=== PATIENT | female | born 1955 | race Two or more races ===

== ENCOUNTER 2020-12-19 20:28 | Emergency (ER) | payer OTHER ==
[~2020-12-19] VITALS: Ht 149.9 cm; Wt 77.1 kg
[2020-12-19] MEDS ORDERED: TOPROL XL50 M1 PO (20:38)
[2020-12-19] MEDS ORDERED: HYDRALAZINE HCL50 MG PO (20:39)
[2020-12-19] MEDS ORDERED: SINGULAIR4 M1 PO (20:39)
[2020-12-19] MEDS ORDERED: LEVO-T75 MCG PO (20:39)
[2020-12-19] MEDS ORDERED: SIMVASTATIN20 MG PO (20:39)
== END 2020-12-20 02:18 | disposition home or self-care (01) ==
LOC: ER 20:28
DX: G43.909 Migraine, unspecified, not intractable, without status migrainosus (principal)

== ENCOUNTER 2025-08-12 22:32 | Emergency (ER) | payer OTHER ==
[~2025-08-12] VITALS: Ht 149.9 cm; Wt 78.5 kg
[~2025-08-12 22:32] MED LIST: HYDRALAZINE HCL50 MG PO; LEVO-T75 MCG PO; SIMVASTATIN20 MG PO; SINGULAIR4 M1 PO; TOPROL XL50 M1 PO
[2025-08-12] MEDS ORDERED: ONDANSETRON 4 MG TAB.RAPDIS PO ONE (23:30)
[2025-08-12] MEDS ORDERED: FAMOtidine 10 MG/ML (4ML VIAL) IV PUSH ONE (23:30)
[2025-08-12] MEDS ORDERED: BUTALB/ACETAMINOPHEN/CAFFEINE 1 TAB TABLET PO ONE ×2 (23:30→23:38)
[2025-08-12] MEDS ORDERED: FAMOTIDINE/PF 20 MG/2 ML VIAL ONE (23:38)
[2025-08-12] MEDS ORDERED: ONDANSETRON HCL 2 MG/ML VIAL ONE (23:38)
[2025-08-13 00:26] LABS: BASO % 0.4 % (0.1-1.2); EOS # 0.15 (0.04-0.54); EOS % 1.5 % (0.7-7.0); LYMPH # 2.27 (1.18-3.74); LYMPH % 22.2 % (19.3-53.1); MEAN PLATELET VOLUME 10.50 fl (9.4-12.4); MONO # 0.80 (0.24-0.82); MONO % 7.8 % (4.7-12.5); NEUT # 6.93 (1.56-6.13); NEUT % 67.7 % (34.0-71.1); RED CELL DISTRIBUTION WIDTH 14.7 % (11.6-14.4)
[2025-08-13 00:48] LABS: ALT/SGPT 30.0 U/L (12-78); AST/SGOT 17.0 U/L (15-37); BILIRUBIN TOTAL 0.83 mg/dL (0.3-1.2); BUN CREA RATIO 14.0 (7.0-25.0); CREATININE SERUM 0.93 mg/dL (0.55-1.02); GFR 59.95; GLOBULINA 4.7 G/DL (2.4-3.5); GLUCOSE FASTING 120.0 mg/dL (65-100); OSMOLALITY SERUM 286.0 MOSM/KG (275-295)
[2025-08-13] MEDS ORDERED: BUTALBIT-ACETA1 EACH PO (00:48)
[2025-08-13 00:49] LABS: COVID-19 AG NEGATIVE (NEGATIVE)
== END 2025-08-13 01:18 | disposition home or self-care (01) ==
LOC: ER 22:32
PROVIDERS: General Practice
DX: G43.909 Migraine, unspecified, not intractable, without status migrainosus (principal); R11.0 Nausea; Z20.822 Contact with and (suspected) exposure to COVID-19; I10 Essential (primary) hypertension; E03.8 Other specified hypothyroidism; Z88.5 Allergy status to narcotic agent; Z88.6 Allergy status to analgesic agent
CPT/HCPCS: 36415; 70450; 96365; 99284; J3490